=== PATIENT | male | born 1960 | race Caucasian/White ===

== ENCOUNTER 2016-11-09 12:34 | Inpatient (IN) | payer MEDICAID ==
--- NOTE | 2016-11-09 16:00 | NUR ---
RECEIVED PT FROM RADIOLOGY TO ROOM 2131 VIA W/C IN STABLE CONDITION VSS PT DENIES ANY PAIN AT THIS TIME
[2016-11-09 17:07] VITALS: BP 128/80
[2016-11-09 17:26] VITALS: BP 128/80; BMI 18.4
[2016-11-09] MEDS ORDERED: PROVENTIL HFA6.7 GM INH (17:31)
[2016-11-09 17:56] LABS: BASOPHILS 0.2 % (0-2); EOSINOPHILS 1.5 % (0-7); HEMATOCRIT 39.7 % (42.0-54.0); HEMOGLOBIN 13.1 g/dL (13.5-17.5); IMMATURE GRANULOCYTES 0.2 % (0-5); LYMPHOCYTES 16.7 % (15-50); MCH 29.8 pg (26.0-34.0); MCV 90.2 fL (80.0-100.0); MEAN PLATELET VOLUME 8.7 fL (7.4-10.4); MONOCYTES 11.7 % (2-11); NEUTROPHILS 69.7 % (40-80); PLATELET COUNT 274 10x3/uL (130-400); RDW 13.7 % (11.5-14.5); WBC 11.4 10x3/uL (4.8-10.8)
[2016-11-09 18:26] LABS: ALBUMIN 3.1 g/dL (3.4-5.0); ALKALINE PHOSPHATASE 102 U/L (46-116); ALT (SGPT) 13 U/L (10-68); BILIRUBIN - TOTAL 0.17 mg/dL (0.2-1.3); CALC OSMOLALITY 276 mosm/kg (275-300); CALCIUM 8.6 mg/dL (8.5-10.1); CARBON DIOXIDE 29.1 mmol/L (21.0-32.0); CHLORIDE - SERUM 103 mmol/L (98-107); CREATININE - SERUM 0.8 mg/dL (0.6-1.3); GLUCOSE 91 mg/dL (74-106); POTASSIUM - SERUM 3.3 mmol/L (3.5-5.1); PROTEIN - SERUM 6.9 g/dL (6.4-8.2); SODIUM 140 mmol/L (136-145); UREA NITROGEN 7 mg/dL (7-18); eGFR NON AFRICAN AMERICAN > 90 mL/min (90-120)
[2016-11-09 19:00] VITALS: BP 125/63
--- NOTE | 2016-11-09 19:55 | NUR ---
RESUMED CARE OF PT, UP IN ROOM RESPIRATIONS EVEN AND UNLABORED ON ROOM AIR. LEFT AC INFUSIGN D5NS @ 100. NO NEEDS AT THIS TIME, CALL LIGHT IN REACH. WILL CONTINUE TO MONTIOR. SEE NURSE ASSESSMENT.
[2016-11-10] VITALS: BP 113/62
[2016-11-10 04:00] VITALS: BP 109/68
--- NOTE | 2016-11-10 04:24 | NUR ---
BALL RACKER AT BEDSIDE TO OBTAIN VITALS, CALL LIGHT IN REACH. WILL CONTINUE WITH PLAN OF CARE.
--- NOTE | 2016-11-10 06:32 | NUR ---
NO CHANGES FROM PREVIOUS ASSESSMENT, SPECIMEN CUPS AT BEDSIDE. PT AWARE THAT WE ARE NEEDING SAMPLES. CALL LIGHT IN REACH.
--- NOTE | 2016-11-10 07:22 | NUR ---
PT SITTING UP IN BED DENIES NEEDS WILL CONT TO MONITOR
[2016-11-10 08:00] VITALS: BP 130/74
[2016-11-10 08:43] LABS: APPEARANCE HAZY (CLEAR); BACTERIA FEW /hpf (NONE SEEN); BILIRUBIN NEGATIVE (NEGATIVE); COLOR YELLOW (YELLOW); EPITHELIAL CELLS 0-5 /hpf (0-5); GLUCOSE NEGATIVE (NEGATIVE); KETONE NEGATIVE (NEGATIVE); MUCUS <1+ /lpf (NONE SEEN); NITRITE NEGATIVE (NEGATIVE); PROTEIN NEGATIVE (NEGATIVE); SPECIFIC GRAVITY 1.015 (1.005-1.020); SPERMATOZOA RARE /hpf (NONE SEEN); UROBILINOGEN NORMAL (NORMAL)
--- NOTE | 2016-11-10 10:29 | NUR ---
stool specimen cup in pt room to be collected when pt has a bm, pt is aware. will call when specimen is ready to be collected
[2016-11-10 10:44] VITALS: BMI 18.2
[2016-11-10 12:03] VITALS: BP 131/73
[2016-11-10 15:54] VITALS: BP 134/85
--- NOTE | 2016-11-10 16:40 | NUR ---
PT SITTING UP IN BED DENIES NEEDS WILL CONT TO MONITOR
[2016-11-10 19:00] VITALS: BP 125/77
--- NOTE | 2016-11-10 19:20 | NUR ---
PT RESTING IN BED. FAMILY AT BEDSIDE. D5NS INFUSING TO RIGHT AC AT 100. PT DENIES ANY NEEDS. NO S/S OF DISTRESS. WILL CPOC
--- NOTE | 2016-11-10 21:01 | NUR ---
PT RESTING IN BED. AT BEDSIDE. PT AAO. DENIES ANY NEEDS OR CONCERNS AT THIS TIME. NO S/S OF DISTRESS.BED LOW AND CALL LIGHT IN REACH. WILL CPOC
[2016-11-11] VITALS (12 sets, daily range): BP systolic 120–140; BP diastolic 60–83
--- NOTE | 2016-11-11 02:37 | NUR ---
FLAGYL INFUSING AT 100ML/HR TO RIGHT AC IV. PT DENIES ANY NEEDS. ASLEEP AT BEDSIDE. PT HAS NO S/S OF DISTRESS. WILL CPOC
--- NOTE | 2016-11-11 05:41 | NUR ---
PT SITTING UP IN BED. AT BED SIDE. PT AWAKE AAO. IV INFUSING D5NS AT 100 TO RIGHT AC. PT DENIES ANY NEEDS. NO S/S OF DISTRESS. WILL CPOC
--- NOTE | 2016-11-11 07:17 | NUR ---
IR on floor and asked if I would add "with possible chest tube placement" to the consent for ct guided lung biopsy. pt was upset with this possibility. explained the risks and benefits etc. pt wants some time to talk with about it
[2016-11-11 08:34] LABS: BASOPHILS 0.2 % (0-2); EOSINOPHILS 1.4 % (0-7); HEMATOCRIT 37.7 % (42.0-54.0); HEMOGLOBIN 12.2 g/dL (13.5-17.5); IMMATURE GRANULOCYTES 0.2 % (0-5); LYMPHOCYTES 21.8 % (15-50); MCH 29.4 pg (26.0-34.0); MCHC 32.4 g/dL (31.0-37.0); MCV 90.8 fL (80.0-100.0); MEAN PLATELET VOLUME 8.8 fL (7.4-10.4); MONOCYTES 11.1 % (2-11); NEUTROPHILS 65.3 % (40-80); PLATELET COUNT 241 10x3/uL (130-400); RBC 4.15 10x6/uL (4.20-6.10)
[2016-11-11 08:35] LABS: WBC 6.4 10x3/uL (4.8-10.8)
[2016-11-11 08:46] LABS: CALC OSMOLALITY 279 mosm/kg (275-300); CALCIUM 8.2 mg/dL (8.5-10.1); CARBON DIOXIDE 25.5 mmol/L (21.0-32.0); CHLORIDE - SERUM 107 mmol/L (98-107); CREATININE - SERUM 0.9 mg/dL (0.6-1.3); GLUCOSE 115 mg/dL (74-106); SODIUM 141 mmol/L (136-145); UREA NITROGEN 7 mg/dL (7-18); eGFR NON AFRICAN AMERICAN > 90 mL/min (90-120)
[2016-11-11 09:10] LABS: INR 1.04 (0.85-1.17); PROTIME 13.5 SECONDS (11.6-15.0)
--- NOTE | 2016-11-11 09:31 | NUR ---
PT IS AGREEABLE TO THE ADDING TO THE CONSENT OF "POSSIBLE CHEST TUBE PLACEMENT". PT SIGNED HIS INITIALS NEXT TO THE ADDITION. CONSENT PLACED ON PT CHART. PT AT BEDSIDE
--- NOTE | 2016-11-11 10:35 | NUR ---
PT BACK FROM CT GUIDED LUNG BIOPSY VS ARE WNL. PT IS SITTING UP IN BED ALERT AND ORIENTED. INSTRUCTED PT ON BED REST FOR 4 HOURS AFTER PROCEDURE PT VERBALIZES UNDERSTANDING. AT BEDSIDE WILL CONT TO MONITOR
--- NOTE | 2016-11-11 11:52 | NUR ---
MICRO ORDERS FOR CHEST WOUND FROM THE CT GUIDED BIOPSY WERE PUT IN, THEY HAVE ALREADY COLLECTED THIS IN CT. CANCELLED LAB
--- NOTE | 2016-11-11 14:43 | NUR ---
CIARA AND JED FROM IR TALKED WITH PT AND PT ABOUT A SMALL LEAK ON CHEST XR. SO PT IS NOT ADVISED TO GO HOME. APPARENTLY PT HAS BEEN GOING OUT TO SPOKE. JED TALKED WITH THEM ABOUT HOW PT DOES DEFINITELY NOT NEED TO BE OUT SMOKING. PT AND PT ARE NOT HAPPY ABOUT NOT BEING ABLE TO GO HOME
--- NOTE | 2016-11-11 19:10 | NUR ---
ROUNDING NOTE: PT IS ALERT, AWAKE, ORIENTED X 3. IS SITTING AT BEDSIDE. PT IS ON RA AT THIS TIME. DENIES ANY SOB OR DYSPNEA. DENIES ANY ABD PAIN OR DIARRHEA. HE STATES THAT HIS COLITIS SX HAVE RESOLVED. PT UNDERWENT A LUNG BX ON 11/11. AFTER THE PROCEDURE, CXR SHOWED A SMALL AIR LEAK, SO HE IS BEING KEPT OVERNIGHT TO BE MONITORED FOR PNEUMOTHORAX. IF HE REMAINS STABLE AND REPEAT CXR TOMORROW IS IMPROVED/RESOLVED, HE WILL LIKELY BE D/C'D HOME TOMORROW W/ OUTPATIENT F/U. CURRENTLY CONTINUES ON IV LEVAQUIN AND IV FLAGYL. IVF- D5NS @100CC/HR RUNNING VIA RIGHT AC IV SITE. PT IS +SMOKER, BUT HAS BEEN ADVISED NOT TO SMOKE RIGHT NOW. HE IS DECLINING NICOTINE PATCH. HE CAN AMBULATE ON UNIT, BUT HE CANNOT GO OUTSIDE TO SMOKE. PT REMAINS STABLE AND DENIES ANY NEEDS. WILL CONT TO MONITOR.
[2016-11-12 04:00] VITALS: BP 120/72
[2016-11-12 05:56] LABS: BASOPHILS 0.3 % (0-2); EOSINOPHILS 2.2 % (0-7); HEMATOCRIT 35.7 % (42.0-54.0); HEMOGLOBIN 11.7 g/dL (13.5-17.5); IMMATURE GRANULOCYTES 0.1 % (0-5); LYMPHOCYTES 16.8 % (15-50); MCH 29.5 pg (26.0-34.0); MCHC 32.8 g/dL (31.0-37.0); MCV 90.2 fL (80.0-100.0); MONOCYTES 16.3 % (2-11); NEUTROPHILS 64.3 % (40-80); PLATELET COUNT 263 10x3/uL (130-400); RBC 3.96 10x6/uL (4.20-6.10); RDW 14.1 % (11.5-14.5); WBC 7.3 10x3/uL (4.8-10.8)
[2016-11-12 06:11] LABS: CALC OSMOLALITY 276 mosm/kg (275-300); CALCIUM 7.7 mg/dL (8.5-10.1); CARBON DIOXIDE 24.2 mmol/L (21.0-32.0); CHLORIDE - SERUM 106 mmol/L (98-107); CREATININE - SERUM 0.8 mg/dL (0.6-1.3); GLUCOSE 110 mg/dL (74-106); SODIUM 139 mmol/L (136-145); UREA NITROGEN 6 mg/dL (7-18); eGFR NON AFRICAN AMERICAN > 90 mL/min (90-120)
--- NOTE | 2016-11-12 07:38 | NUR ---
PT SITTING UP IN BED ASKING ABOUT CHEST XRAY WITH AT BEDSIDE. BOTH WANT TO GO HOME. EXPLAINED TO THEM THAT I DO NOT HAVE RESULTS, NOR CAN I DISCHARGE HIM. THE DR HAS TO DO THAT
[2016-11-12 08:00] VITALS: BP 152/77
--- NOTE | 2016-11-12 09:10 | HP ---
PATIENT: MAX BLUE MEDICAL RECORD: [id number] ACCOUNT: [id number] LOCATION:[address] : 60 ADMISSION DATE: 11/09/16 HISTORY AND PHYSICAL EXAMINATION HISTORY OF PRESENT ILLNESS: Mr. Blue is a 56-year-old white male that presents to the clinic today, seen by Yuliya Grady for abdominal pain. Pain is in the periumbilical area, has been going on 4-5 days. He has had fever at home up to 102.9. He has had diarrhea, nausea in the last few days, just low-grade. He has been drinking Gatorade at home. I have examined the patient in the office and he was sent for CT, which shows colitis of the large intestine and a cavitary lung lesion. He is being admitted at this time for IV fluids, IV antibiotics, stool studies and further evaluation of this cavitary lesion. His white count is 15,000 here in the office and he appears mildly to moderately ill. PAST MEDICAL HISTORY: Significant for osteoarthritis and known COPD. PREVIOUS SURGERIES: Include tonsillectomy at age 13. ALLERGIES: None. MEDICATIONS: Only medication is albuterol inhaler 2 puffs q.i.d. p.r.n. FAMILY HISTORY: Significant for hypertension, lung cancer, asthma, ulcerative colitis and seizure disorder. SOCIAL HISTORY: He is . He smokes 2-1/2 packs per day. Does not drink. REVIEW OF SYSTEMS: He has had fever, nausea, vomiting, diarrhea, abdominal pain, decreased appetite. No chest pain. Some shortness of breath. PHYSICAL EXAMINATION: GENERAL: He appears mildly to moderately ill. HEENT: Head is normocephalic. NECK: Soft. HEART: Regular. LUNGS: With diminished breath sounds with few crackles in the bases. ABDOMEN: Reveals some diffuse tenderness. No masses appreciated. No bruit as noted. EXTREMITIES: Reveal no edema. Gait is okay. IMPRESSION: 1. Colitis. 2. Cavitary lung lesion. 3. Dehydration. 4. Leukocytosis. 5. Chronic obstructive pulmonary disease. PLAN: Admit, IV fluids, IV Levaquin and Flagyl. Get stool studies, get a pulmonary consult. CT of the chest is being done at this time. See orders for rest of plan. TRANSINT:[id number] Voice Confirmation ID: [id number] DOCUMENT ID: [id number] HISTORY AND PHYSICAL [id number] MAX BLUE MATTHEW DO at 0910 CC: [id number] DICTATION DATE: 11/09/16 1516 MATERIAL EXPEDITER: 11/09/16 1544 ADM IN [facility] [address] [id number]
--- NOTE | 2016-11-12 10:02 | NUR ---
PT IS OFF THE FLOOR WILL START IV ABX WHEN HE GETS BACK
[2016-11-12] MEDS ORDERED: LEVAQUIN750 MG PO (10:41)
[2016-11-12] MEDS ORDERED: FLAGYL500 MG PO (10:42)
--- NOTE | 2016-11-12 11:18 | NUR ---
WENT OVER DC PAPERWORK WITH PT PT VERBALIZES UNDERSTANDING . DC PIV WITH CATH TIP INTACT. PT REFUSED WHEELCAHIR AND WALKED OUT WITH
[2016-11-17 03:10] LABS: OVA + PARASITE EXAM Final report (())
[2016-11-18 18:10] LABS: FUNGAL - ASP FLAVUS Negative (Neg:<1:1); FUNGAL - ASP NIGER Negative (Neg:<1:1); FUNGAL - ASPER FUMIGATUS Negative (Neg:<1:1)
--- NOTE | 2016-11-23 11:43 | CN ---
PATIENT NAME:MAX BLUE MEDICAL RECORD: [id number] : 60 LOCATION:[address] ADMIT DATE: 11/09/16 ACCOUNT: [id number] CONSULTING PHYSICIAN: SIERRA MIRANDA MD REFERRING PHYSICIAN: RACHEL PAREDES MD DATE OF CONSULTATION: 11/10/2016 Pulmonary Consultation CONSULT REQUESTING PHYSICIAN: Rachel Paredes MD REASON FOR CONSULTATION: Cavitary lesion in the left lower lobe. Multiple pulmonary nodules. HISTORY OF PRESENT ILLNESS: Mr. Blue is a 56-year-old gentleman who has abdominal pain and diarrhea. He also has fever of 102.9 and significant leukocytosis. The patient was admitted to the hospital for possible colitis as well as a cavitary lesion probably lung abscess. Currently, he is coughing, but there is no significant sputum production. There is no hemoptysis. He has no night sweats. There is no weight loss. REVIEW OF SYSTEMS: Mainly in the history of present illness. PAST MEDICAL HISTORY: 1. COPD. 2. Chronic smoker. 3. Osteoarthritis. 4. Left-sided lung abscess in the past secondary to bad teeth. PAST SURGICAL HISTORY: Tonsillectomy. ALLERGIES: No known drug allergies. MEDICATIONS: He is on Flagyl IV and Levaquin IV. His other medication is reviewed. PERSONAL AND SOCIAL HISTORY: The patient is still smoking 2-1/2 pack per day. He is a nondrinker. FAMILY HISTORY: Noncontributory. PHYSICAL EXAMINATION: GENERAL: The patient is now lying comfortably in bed. He is not in acute distress. VITAL SIGNS: The blood pressure is 134/85, pulse is 75, respiration is 18, temperature 97.7, SPO2 is 97% on room air. HEENT: Conjunctivae are pink. Sclerae nonicteric. NECK: Supple, no JVD. CHEST: The chest excursion is minimal on both sides. There is no wheezing, no rales. HEART: Rhythm regular, normal sound, no murmur. ABDOMEN: Soft. Bowel sounds present. No hepatosplenomegaly. RECTAL: Deferred. EXTREMITIES: No cyanosis, no clubbing, no pedal edema. SKIN: Warm, normal turgor. CONSULT REPORT [id number] MAX BLUE CENTRAL NERVOUS SYSTEM: The patient is awake and alert. There is no obvious cranial nerve abnormality. The gait was not tested. IMAGING: CT scan of the chest: There is cavitary lesion in the left lower lobe which is thick-walled and spiculated lesion. There is also a lesion in the right upper lobe. There is also bullous lesion. OTHER LABORATORY DATA: CBC: The WBC is 11.4, hemoglobin 13.1, hematocrit 39.7, the platelet count 274. Chemistry: Sodium 140, potassium 3.3, BUN is 7, creatinine 0.8. IMPRESSION: 1. Cavitary lesion, left lower lobe thick-walled with spiculated lesion, ruled out any malignant process. 2. Multiple pulmonary nodules bilaterally. 3. 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 4. Leukocytosis. 5. Tobacco dependence syndrome. 6. Colitis. RECOMMENDATIONS: 1. Continue Flagyl. Continue Levaquin IV. 2. Nebulized medication. I will proceed with CT-guided lung biopsy on the left side. 3. Follow up labs and chest radiograph. Dr. Edwards, thank you for involving me in the care of Mr. Blue. TRANSINT:[id number] Voice Confirmation ID: [id number] DOCUMENT ID: [id number] SIERRA MIRANDA MD at 1143 CC: PAIGE EDWARDS DO [id number] DICTATION DATE: 11/10/16 171 [employer]ATION [employer] CONTR[employer] INSTRUCTOR: 11/10/16 2345 DIS IN 11/12/16 [facility] [address] [place] [address]
== END 2016-11-12 11:19 | disposition home or self-care (01) | DRG 206 ==
LOC: D.CT 12:34 → D.M2 16:58
PROVIDERS: Internal Medicine Pulmonary Disease; Specialist; ADMIT Family Medicine
PROC: 0BBJ3ZX Excision of Left Lower Lung Lobe, Percutaneous Approach, Diagnostic (ICD-10-PCS; principal; 2016-11-11 10:15)
DX: J98.4 Other disorders of lung (principal); J44.9 Chronic obstructive pulmonary disease, unspecified; K52.9 Noninfective gastroenteritis and colitis, unspecified; M19.90 Unspecified osteoarthritis, unspecified site; E86.0 Dehydration; F17.200 Nicotine dependence, unspecified, uncomplicated; J93.9 Pneumothorax, unspecified; R91.1 Solitary pulmonary nodule

== ENCOUNTER 2019-09-06 20:13 | Emergency (ER) | payer SELFPAY ==
[~2019-09-06] VITALS: Ht 177.8 cm; Wt 58.1 kg
[~2019-09-06 20:13] MED LIST: FLAGYL500 MG PO; LEVAQUIN750 MG PO; PROVENTIL HFA6.7 GM INH
[2019-09-06 20:26] VITALS: Ht 177.8 cm; Wt 58.1 kg
[2019-09-06] MEDS ORDERED: PROAIR HFA8.5 G1 INH (21:27)
[2019-09-06] MEDS ORDERED: STERAPRED DS 1010 MG PO (21:27)
[2019-09-06 21:43] VITALS: BP 135/78
== END 2019-09-06 21:44 | disposition home or self-care (01) ==
LOC: D.ER 20:13
DX: J44.1 Chronic obstructive pulmonary disease with (acute) exacerbation (principal); Z72.0 Tobacco use; R06.02 Shortness of breath